=== PATIENT | female | born 1945 | race Caucasian/White ===

== ENCOUNTER → 2016-10-14 08:14 | Outpatient (CLI) | payer MEDICARE ==
[2011-12-29 06:09] VITALS: BMI 25.3
[~2016-10-14 08:14] MED LIST: COZAAR100 MG PO; HYDROCHLOROTH12.5 M1 PO; HYDROCODONE-APA1 TAB PO; MIACALCIN NASA3.7 ML NASAL; ZOCOR20 MG PO; ZYLOPRIM100 MG PO
[2016-11-23 07:00] VITALS: BMI 24.6
== END | disposition home or self-care (01) ==
LOC: D.US 08:14
DX: N63 Unspecified lump in breast (principal)

== ENCOUNTER 2016-11-23 05:36 | Day surgery (SDC) | payer MEDICARE ==
[~2016-11-23] VITALS: Ht 154.9 cm; Wt 59.0 kg
[~2016-11-23 05:36] MED LIST changes: -HYDROCODONE-APA1 TAB PO
[2016-11-23 06:52] LABS: BASOPHILS 0.3 % (0.0-2.0); EOSINOPHILS 4.3 % (0-7); HEMOGLOBIN 12.9 g/dL (12-16); IMMATURE GRANULOCYTES 0.2 % (0-5); LYMPHOCYTES 21.5 % (15-50); MCH 32.6 pg (26.0-34.0); MCHC 33.1 g/dL (31.0-37.0); MCV 98.5 fL (80.0-100.0); MEAN PLATELET VOLUME 10.5 fL (7.4-10.4); NEUTROPHILS 63.7 % (40-80); PLATELET COUNT 367 10x3/uL (130-400); RBC 3.96 10x6/uL (4.00-5.40); RDW 13.9 % (11.5-14.5); WBC 10.8 10x3/uL (4.8-10.8)
[2016-11-23 06:56] LABS: ANION GAP 12.1 mmol/L (8-16); CALCIUM 8.8 mg/dL (8.5-10.1); POTASSIUM - SERUM 4.1 mmol/L (3.5-5.1)
[2016-11-23 07:00] VITALS: BP 150/96; Ht 154.9 cm; Wt 59.0 kg
[2016-11-23] MEDS ORDERED: HYDROCODONE-APA1 TAB PO (11:02)
--- NOTE | 2016-11-23 13:25 | NUR ---
MOVING AROUND ROOM WITHOUT DIZZINESS OR UNSTEADINESS, DENIES PAIN, RIGHT HAND PIV DC'D WITH TIP INTACT. PATIENT DRESSING IN PERSONAL CLOTHING, SISTER STANDING BY
--- NOTE | 2016-11-23 13:55 | NUR ---
DC INSTRUCTIONS REVIEWED WITH PATIENT AND SISTER WHO IS GUARDIAN. DISCHARGED HOME VIA WHEELCHAIR TO PRIVATE VEHICLE WITH SISTER
--- NOTE | 2016-12-17 13:21 | OP ---
PATIENT NAME: ALIYAH FLOWERS MEDICAL RECORD: [id number] :47 LOCATION:D.OPS ADMISSION DATE: SURGEON: EZEQUIEL CHAMBERS MD DATE OF OPERATION: 11/23/2016 PREOPERATIVE DIAGNOSES: 1. Left breast atypical ductal hyperplasia. 2. Mental retardation. 3. Hypertension. 4. Hypercholesterolemia. POSTOPERATIVE DIAGNOSES: 1. Left breast atypical ductal hyperplasia. 2. Mental retardation. 3. Hypertension. 4. Hypercholesterolemia. PROCEDURE: Needle localization left breast lumpectomy. SURGEON: Ezequiel Chambers MD. REPORT OF PROCEDURE: The patient's left breast was prepped and draped in sterile fashion. The patient had had a wire placed since sterotactic guidance prior to the procedure. A skin incision was made on superior and medial aspect of the patient's left nipple areolar complex. Electrocautery was used to dissect through the subcutaneous tissues and we tunneled our way up to the wire exit site. The wire was pulled through the skin and eviscerated through the wound. We cored out a section of a breast tissue around this wire down underneath the nipple areolar complex. The wire was completely excised, we marked it appropriately and then sent it off to radiology where they inspected it and showed that the clip was in placed and the wire was intact. The subcutaneous tissues were irrigated out and any bleeding was treated with electrocautery. The subcutaneous tissues were reapproximated with interrupted 3-0 Vicryls and the skin was closed with running subcutaneous 5-0 Monocryl. COMPLICATIONS: None. CONDITION: Stable. ANESTHESIA: General endotracheal and local. BLOOD LOSS: Minimal. TRANSINT:[id number] Voice Confirmation ID: [id number] DOCUMENT ID: [id number] EZEQUIEL CHAMBERS MD at 1321 CC: NGOC FAULKNER DO [id number] DICTATION DATE: 11/23/16 1106 BREASTFEEDING PROGRAM COORDINATOR: 11/23/16 1351 [facility] 11/23/[address] [address]
== END 2016-11-23 13:55 | disposition home or self-care (01) ==
LOC: D.OPS 05:36 → D.PAN 07:30 → D.MAMMO 07:30 → D.OPS 13:55
PROVIDERS: Surgery
DX: C50.112 Malignant neoplasm of central portion of left female breast (principal); Z17.0 Estrogen receptor positive status [ER+]; N60.12 Diffuse cystic mastopathy of left breast; F79 Unspecified intellectual disabilities; I10 Essential (primary) hypertension; E78.00 Pure hypercholesterolemia, unspecified